=== PATIENT | male | born 1955 | race Caucasian/White ===

== ENCOUNTER → 2018-08-18 | Outpatient (CLI) | payer OTHER ==
--- NOTE | 2018-08-18 12:40 | REP ---
Right lower extremity Duplex Doppler venous ultrasound: Real time compression and duplex Doppler interrogation of the right lower extremity deep venous system is performed. The right common femoral, superficial femoral and popliteal veins are fully compressible with transducer pressure and demonstrate normal spontaneous and phasic flow, without evidence of deep venous thrombosis. Impression: No evidence of deep venous thrombosis of the right lower extremity femoral popliteal venous system. Electronically Signed by Napoleon Mckeon MD 08/18/2018 12:31 P
== END ==
LOC: M RAD 11:36
PROVIDERS: ATTEND Physician Assistant Surgical
DX: Z86.718 Personal history of other venous thrombosis and embolism (principal)

== ENCOUNTER 2020-11-13 11:23 | Emergency (ER) | payer MEDICARE, OTHER ==
[~2020-11-13] VITALS: Ht 177.8 cm; Wt 97.6 kg
[2020-11-13 11:35] VITALS: BP 160/87
[2020-11-13] MEDS ORDERED: SILD100T7 (12:42)
[2020-11-13] MEDS ORDERED: AMOX500C PO (12:42)
[2020-11-13 15:33] LABS: BASO % 0.5 % (0.0-1.0); EOS # 0.2 10^3/uL (0.0-0.5); HEMATOCRIT 47.2 % (42.0-52.0); HEMOGLOBIN 15.7 g/dl (13.5-17.5); LYMPH # 2.8 10^3/uL (1.5-5.0); LYMPH % 31.4 % (24.0-44.0); MEAN CORPUSCULAR HGB CONC 33.3 g/dl (32.0-36.5); MEAN CORPUSCULAR VOLUME 90.1 fl (80.0-96.0); MONO # 0.6 10^3/uL (0.0-0.8); MONO % 7.2 % (2.0-8.0); NEUTROPHILS # 5.2 10^3/uL (1.5-8.5); NEUTROPHILS % 58.4 % (36.0-66.0); PLATELET COUNT, AUTOMATED 284 10^3/uL (150-450); RED BLOOD COUNT 5.24 10^6/uL (4.30-6.10); WHITE BLOOD COUNT 8.8 10^3/uL (4.0-10.0)
[2020-11-13 15:42] LABS: ALBUMIN 3.2 GM/DL (3.2-5.2); ALT/SGPT 24 U/L (12-78); BILIRUBIN,DIRECT < 0.1 MG/DL (0.0-0.2); BILIRUBIN,TOTAL 0.5 MG/DL (0.2-1.0); TOTAL PROTEIN 6.4 GM/DL (6.4-8.2)
[2020-11-13] MEDS ORDERED: CLIN-250 PO ×2 (16:09→16:13)
[2020-11-13 16:14] LABS: ERYTHROCYTE SEDIMENTATION RATE 7 mm/hr (0-20)
[2020-11-13] MEDS ORDERED: CLEO300C2 PO (16:16)
== END 2020-11-13 16:30 | disposition home or self-care (01) ==
LOC: M ED 11:23
DX: L03.116 Cellulitis of left lower limb (principal); I10 Essential (primary) hypertension; E78.5 Hyperlipidemia, unspecified; F17.200 Nicotine dependence, unspecified, uncomplicated

== ENCOUNTER → 2020-12-04 | Outpatient (CLI) | payer MEDICARE ==
[~2020-12-04] MED LIST: AMOX500C PO; CLEO300C2 PO; CLIN300C6 PO; SILD100T7
--- NOTE | 2020-12-04 08:45 | REP ---
INDICATION: ATHEROSCLEROSIS PT NEEDS DISK FROM COMPARISON: 11/13/2020 TECHNIQUE: Real time compression and duplex Doppler interrogation of the right lower extremity deep venous system is performed, including the left common femoral vein.Compression of the right peroneal and posterior tibial veins is performed. Evaluation for venous reflux is performed. FINDINGS: The right common femoral, superficial femoral and popliteal veins are fully compressible with transducer pressure and demonstrate normal spontaneous and phasic flow, without evidence of deep venous thrombosis.The left common femoral vein demonstrates no thrombus.The right peroneal and posterior tibial veins could not be visualized. There is reflux in the common femoral vein and superficial femoral vein. There is no evidence of an anterior accessory greater saphenous vein. There is no reflux in any portion of the greater saphenous vein, which measures 5 mm at the saphenofemoral junction, and 3 mm at the mid thigh and knee level. There is reflux in the lesser saphenous vein with duration of 4 seconds, AP diameter 9 mm. IMPRESSION: No evidence of deep venous thrombosis of the right lower extremity femoral popliteal venous system. Lesser saphenous vein reflux. <Electronically signed by Napoleon Mckeon > 12/04/20 [id number]
== END ==
LOC: M RAD 07:19
PROVIDERS: ATTEND Surgery Vascular Surgery
DX: I70.201 Unspecified atherosclerosis of native arteries of extremities, right leg (principal); R09.89 Other specified symptoms and signs involving the circulatory and respiratory systems; I87.2 Venous insufficiency (chronic) (peripheral); M79.604 Pain in right leg

== ENCOUNTER → 2021-10-08 | Outpatient (REF) | payer MEDICARE ==
[~2021-10-08] MED LIST changes: +CLIN-250 PO; -CLIN300C6 PO
[2021-10-08 13:16] LABS: BLOOD UREA NITROGEN 12 MG/DL (7-18); CREATININE FOR GFR 0.91 MG/DL (0.70-1.30); GLOMERULAR FILTRATION RATE > 60.0 (>49)
== END ==
LOC: M LABDRAWC 11:46
PROVIDERS: ATTEND Surgery Vascular Surgery
DX: Z01.818 Encounter for other preprocedural examination (principal); D69.8 Other specified hemorrhagic conditions